=== PATIENT | female | born 1990 | race Hispanic/Latino ===

== ENCOUNTER 2018-02-25 08:11 | Emergency (ER) | payer BC, SELFPAY ==
[2018-02-25 09:07] LABS: Absolute Lymphocytes (CBC) 2.3 K/uL (0.7-4.9); Absolute Monocytes 0.6 K/uL (0.1-1.3); Basophils % 0.4 % (0-1.3); Eosinophils % 1.2 % (0-4.4); Hematocrit 39.1 % (36.0-45.0); Lymphocytes % 28.7 % (15.3-44.8); MCH 28.9 pg (27.0-35.0); MCV 86.7 fL (80-100); MPV 7.6 fL (7.6-11.3); RBC Red Blood Cell Count 4.51 M/uL (3.86-4.86)
[2018-02-25] MEDS ORDERED: MAGNE/ALUM HYDROXD 30 ML UCUP ONE (09:18)
[2018-02-25] MEDS ORDERED: LIDOCAINE VISCOUS 2% SOLN 15 ML UDC ONE (09:18)
[2018-02-25 09:34] LABS: Bicarbonate 29 mEq/L (21-31); Glucose Level 107 mg/dL (65-120); Lipase 22 U/L (22-51); Potassium 3.4 mEq/L (3.6-5.0); Sodium Level 137 mEq/L (135-145)
[2018-02-25 09:40] LABS: ALT/SGPT 28 IU/L (10-60); AST/SGOT 23 IU/L (10-42); Albumin 4.4 g/dL (3.2-5.5); Alkaline Phosphatase 67 IU/L (42-121); BUN Blood Urea Nitrogen 8 mg/dL (6-20); Bilirubin Direct 0.1 mg/dL (0-0.2); Bilirubin Total 0.4 mg/dL (0.3-1.2); Glomerular Filtration Rate > 90 mL/min (=/>90); Protein, Total 7.7 g/dL (6.0-8.3)
--- NOTE | 2018-02-25 10:47 | RAD REPORT ---
EXAM DESCRIPTION: Ceferino Solomon (2 Views)02/25/2018 9:25 am CLINICAL HISTORY: Chest pain COMPARISON: none FINDINGS: The lungs appear clear of acute infiltrate. The heart is normal size. Nodular opacities overlying the lung bases likely represent nipple shadows IMPRESSION: No acute abnormalities displayed
[2018-02-25 11:02] LABS: Urine Blood NEGATIVE (NEG); Urine Glucose NEGATIVE (NEG); Urine Protein NEGATIVE (NEG)
--- NOTE | 2018-02-25 11:26 | RAD REPORT ---
EXAM DESCRIPTION: US - Abdomen Exam Limited - 02/25/2018 9:51 am CLINICAL HISTORY: Abdominal pain. COMPARISON: None. FINDINGS: A focal area of gallbladder wall thickening measures 4 millimeters. The remainder the gall bladder wall thickness is normal. A gallstone is not seen. The biliary tree is normal caliber. IMPRESSION: Focal area of gallbladder wall thickening may represent adenomyomatosis. Early cholecyst itis is considered a less likely. If the patient's symptoms do not resolve over several days then a f ollow-up gallbladder ultrasound could be obtained for re-evaluation
--- NOTE | 2018-02-25 11:35 | EDPHYS ---
Physician Documentation [facility] Name: Melinda Gallardo Age: 27 yrs Sex: Female : 1990 Arrival Date: 02/25/2018 Time: 08:14 Bed 20 Private MD: ED Physician Jordi Raza HPI: 02/25 09:32 This 27 yrs old Female presents to ER via Ambulatory with complaints of Chest rn Pain. 09:32 The patient or guardian reports chest pain that is located primarily in the substernal rn area. The pain radiates to Associated signs and symptoms: Pertinent positives: None. Pertinent negatives: abdominal pain, cough, diaphoresis, dizziness, headache, lower extremity pain, lower extremity swelling, lightheadedness, nausea, near syncope, palpitations, recent travel, shortness of breath, syncope, vomiting. The chest pain is described as aching, burning. Duration: The patient or guardian reports multiple episodes, that are intermittent. Modifying factors: The symptoms are alleviated by nothing. the symptoms are aggravated by nothing. Severity of pain: At its worst the pain was mild in the emergency department the pain is unchanged. The patient has not experienced similar symptoms in the past. The patient has not recently seen a physician. 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 - Social history:: Smoking status: Patient/guardian denies using tobacco. - Family history:: not pertinent. - Hospitalizations: : No recent hospitalization is reported. ROS: 09:32 Constitutional: Negative for fever, chills, and weight loss, Eyes: Negative for injury, rn pain, redness, and discharge, Neck: Negative for injury, pain, and swelling, Cardiovascular: Negative for palpitations, and edema Respiratory: Negative for shortness of breath, cough, wheezing, and pleuritic chest pain, Abdomen/GI: Negative for abdominal pain, nausea, vomiting, diarrhea, and constipation, MS/Extremity: Negative for injury and deformity, Skin: Negative for injury, rash, and discoloration, Neuro: Negative for headache, weakness, numbness, tingling, and seizure. Exam: 09:32 Constitutional: This is a well developed, well nourished patient who is awake, alert, rn and in no acute distress. Head/Face: Normocephalic, atraumatic. Eyes: Pupils equal round and reactive to light, extra-ocular motions intact. Lids and lashes normal. Conjunctiva and sclera are non-icteric and not injected. Cornea within normal limits. Periorbital areas with no swelling, redness, or edema. Neck: Trachea midline, no thyromegaly or masses palpated, and no cervical lymphadenopathy. Supple, full range of motion without nuchal rigidity, or vertebral point tenderness. No Meningismus. Cardiovascular: Regular rate and rhythm with a normal S1 and S2. No gallops, murmurs, or rubs. Normal PMI, no JVD. No pulse deficits. Respiratory: Lungs have equal breath sounds bilaterally, clear to auscultation and percussion. No rales, rhonchi or wheezes noted. No increased work of breathing, no retractions or nasal flaring. Abdomen/GI: Soft, non-tender, with normal bowel sounds. No distension or tympany. No guarding or rebound. No evidence of tenderness throughout. Skin: Warm, dry with normal turgor. Normal color with no rashes, no lesions, and no evidence of cellulitis. MS/ Extremity: Pulses equal, no cyanosis. Neurovascular intact. Full, normal range of motion. Equal circumference. Neuro: Awake and alert, GCS 15, oriented to person, place, time, and situation. Cranial nerves II-XII grossly intact. Motor strength 5/5 in all extremities. Sensory grossly intact. Cerebellar exam normal. Normal gait. 09:36 ECG was reviewed by the Attending Physician. rn Vital Signs: 08:26 BP 131 / 84; Pulse 76; Resp 12; Temp 97.0(TE); Pulse Ox 99% on R/A; Weight 52.16 kg lk1 (R); Height 4 ft. 9 in. (144.78 cm) (R); Pain 3/10; 10:08 BP 130 / 85; Pulse 75; Resp 18; Pulse Ox 100% on R/A; hj 11:43 BP 128 / 84; Pulse 74; Resp 18; Pulse Ox 100% on R/A; hj 08:26 Body Mass Index 24.89 (52.16 kg, 144.78 cm) lk1 MDM: 08:29 Patient medically screened. rn 09:35 ED course: Pt reports sensation feels like heartburn, goes up to her throat. No rn fever/cough/sob.. 11:28 Differential diagnosis: acute myocardial infarction, acute pericarditis, anxiety, rn coronary artery disease esophagitis, gastritis, gastroesophageal reflux disease (GERD), pancreatitis, peptic ulcer disease, pleurisy, pneumonia. Data reviewed: vital signs, nurses notes, lab test result(s), EKG, radiologic studies, plain films, ultrasound, and as a result, I will discharge patient. Counseling: I had a detailed discussion with the patient and/or guardian regarding: the historical points, exam findings, and any diagnostic results supporting the discharge/admit diagnosis, lab results, radiology results, the need for outpatient follow up, to return to the emergency department if symptoms worsen or persist or if there are any questions or concerns that arise at home. Special discussion: Based on the patient's history, exam, and Dx evaluation, there is no indication for emergent intervention or inpatient Tx. It is understood by the patient/guardian that if the Sx's persist or worsen they need to return immediately for re-evaluation. Based on the patient's Hx, exam, and Dx evaluation, there is no indication for emergent surgery or inpatient Tx. It is understood by the patient/guardian that if the Sx's persist or worsen they need to return immediately for re-evaluation. I discussed with the patient/guardian in detail that at this point there is no indication for admission to the hospital. It is understood, however, that if the symptoms persist or worsen the patient needs to return immediately for re-evaluation. ED course: Normal u/s of gallbladder except focal area of thickening of wall, no stones, normal WBC, normal LFTs/Lipase, will dc home with return precautions, no ischemia on ecg. . 02/25 08:48 Order name: CBC with Diff rn 02/25 08:48 Order name: Basic Metabolic Panel rn 02/25 08:48 Order name: Troponin (emerg Dept Use Only) rn 02/25 08:48 Order name: Lipase; Complete Time: 10:10 rn 02/25 08:48 Order name: LFT's; Complete Time: 10:10 rn 02/25 08:49 Order name: CBC with Automated Diff; Complete Time: 10:10 EDMS 02/25 08:48 Order name: EKG; Complete Time: 08:49 rn 02/25 08:48 Order name: XRAY Chest Pa And Lat (2 Views); Complete Time: 11:15 rn 02/25 08:48 Order name: US Abdomen Limited; Complete Time: 11:27 rn 02/25 08:49 Order name: Basic Metabolic Panel; Complete Time: 10:10 EDMS 02/25 08:49 Order name: Troponin (Emerg Dept Use Only); Complete Time: 10:10 EDMS 02/25 08:59 Order name: Urine Dipstick--Ancillary (enter results); Complete Time: 11:15 bd 02/25 08:59 Order name: Urine --Ancillary (enter results); Complete Time: 11:15 bd 02/25 08:48 Order name: IV Start; Complete Time: 08:49 rn 02/25 08:48 Order name: EKG - Nurse/Tech; Complete Time: 08:49 rn EC:36 Rate is 92 beats/min. Rhythm is regular. QRS [place] is Normal. CA interval is normal. QRS rn interval is normal. QT interval is normal. No Q waves. T waves are Normal. No ST changes noted. Clinical impression: NSR w/ Non-specific ST/T Changes. Interpreted by me. Administered Medications: 08:48 Drug: GI Cocktail without - (Maalox Suspension 30 ml, Lidocaine Liquid 2 % 15 hj ml) Route: PO; 09:06 Follow up: Response: No adverse reaction hj Disposition: 02/25/18 11:34 Discharged to Home. Impression: Chest pain, unspecified, Gastro-esophageal reflux disease. - Condition is Stable. - Discharge Instructions: Nonspecific Chest Pain, Gastroesophageal Reflux Disease, Adult. - Medication Reconciliation Form, Thank You Letter, Antibiotic Education, Prescription Opioid Use form. - Follow up: Private Physician; When: As needed; Reason: Recheck today's complaints, Re-evaluation by your physician. - Problem is new. - Symptoms have improved. Signatures: Dispatcher [employer] EDMS Jordi Raza MD MD rn Joaquin, Henry, RN RN hj Kluge, Leah, RN RN lk1 Corrections: (The following items were deleted from the chart) 09:35 09:32 Constitutional: Negative for fever, chills, and weight loss, Eyes: Negative for rn injury, pain, redness, and discharge, Neck: Negative for injury, pain, and swelling, Cardiovascular: Negative for palpitations, and edema Respiratory: Negative for shortness of breath, cough, wheezing, and pleuritic chest pain, Abdomen/GI: Negative for abdominal pain, nausea, vomiting, diarrhea, and constipation, MS/Extremity: Negative for injury and deformity, Skin: Negative for injury, rash, and discoloration, Neuro: Negative for headache, weakness, numbness, tingling, and seizure, rn
--- NOTE | 2018-02-25 11:35 | ER ---
Nurse's Notes [facility] Emergency Department Name: Melinda Gallardo Age: 27 yrs Sex: Female : 1990 Arrival Date: 02/25/2018 Time: 08:14 Bed 20 Private MD: Diagnosis: Chest pain, unspecified;Gastro-esophageal reflux disease Presentation: 02/25 08:24 Presenting complaint: Patient states: "I have been having pains in the middle (chest) lk1 for a few days and it won't go away. I sometimes feel like my jaw is tightening up and my throat is getting narrow.". Transition of care: patient was not received from another setting of care. Onset of symptoms was February 23, 2018. Care prior to arrival: None. 08:24 Method Of Arrival: Ambulatory lk1 08:24 Acuity: HERMAN 3 lk1 Triage Assessment: 08:25 General: Appears in no apparent distress. Behavior is calm, cooperative, appropriate lk1 for age. Pain: Complains of pain in mid-sternal area Pain currently is 3 out of 10 on a pain scale. Cardiovascular: Capillary refill is brisk Patient's skin is warm and dry. Respiratory: Airway is patent Respiratory effort is even, unlabored, Respiratory pattern is regular, symmetrical. 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 - Social history:: Smoking status: Patient/guardian denies using tobacco. - Family history:: not pertinent. - Hospitalizations: : No recent hospitalization is reported. Screenin:32 Abuse screen: Denies threats or abuse. Denies injuries from another. Nutritional hj screening: No deficits noted. Tuberculosis screening: No symptoms or risk factors identified. Fall Risk None identified. Assessment: 08:31 General: Appears in no apparent distress. uncomfortable, Behavior is calm, cooperative, hj appropriate for age. Pain: Complains of pain in chest and mid-sternal area Pain radiates to jaw Pain began. Neuro: Level of Consciousness is awake, alert, obeys commands, Oriented to person, place, time, situation. Cardiovascular: Capillary refill < 3 seconds Patient's skin is warm and dry. Respiratory: Airway is patent Respiratory effort is even, unlabored, Respiratory pattern is regular, symmetrical, Breath sounds are clear. GI: No signs and/or symptoms were reported involving the gastrointestinal system. : No signs and/or symptoms were reported regarding the genitourinary system. EENT: No signs and/or symptoms were reported regarding the EENT system. Derm: No signs and/or symptoms reported regarding the dermatologic system. Musculoskeletal: No signs and/or symptoms reported regarding the musculoskeletal system. 09:16 Reassessment: back from US. Reassessment: Patient and/or family updated on plan of care hj and expected duration. Pain level reassessed. Patient is alert, oriented x 3, equal unlabored respirations, skin warm/dry/pink. 10:08 Reassessment: Patient and/or family updated on plan of care and expected duration. Pain hj level reassessed. Patient is alert, oriented x 3, equal unlabored respirations, skin warm/dry/pink. awaiting results;. Vital Signs: 08:26 BP 131 / 84; Pulse 76; Resp 12; Temp 97.0(TE); Pulse Ox 99% on R/A; Weight 52.16 kg lk1 (R); Height 4 ft. 9 in. (144.78 cm) (R); Pain 3/10; 10:08 BP 130 / 85; Pulse 75; Resp 18; Pulse Ox 100% on R/A; hj 11:43 BP 128 / 84; Pulse 74; Resp 18; Pulse Ox 100% on R/A; hj 08:26 Body Mass Index 24.89 (52.16 kg, 144.78 cm) lk ED Course: 08:14 Patient arrived in ED. mr 08:25 Triage completed. lk1 08:27 Arm band placed on right wrist. lk1 08:29 Jordi Raza MD is Attending Physician. rn 08:30 Masoud Ruiz RN is Primary Nurse. hj 08:32 Patient has correct armband on for positive identification. Placed in gown. Bed in low hj position. Call light in reach. Side rails up X 1. child monitor on. Pulse ox on. NIBP on. 08:32 Patient maintains SpO2 saturation greater than 95% on room air. hj 08:38 Initial lab(s) drawn, by me, EKG done, by technical editor. Inserted saline lock: 22 gauge in hj right antecubital area, using aseptic technique. Blood collected. 08:46 EKG done, by technical editor. reviewed by Jordi Raza MD. tc 09:05 Urine collected: clean catch specimen, clear. 5 09:05 Urine --Ancillary (enter results) Sent. mh5 09:05 Urine Dipstick--Ancillary (enter results) Sent. 5 09:07 Patient moved to radiology via wheelchair. sw 09:24 XRAY Chest Pa And Lat (2 Views) In Process Unspecified. EDMS 09:43 Patient taken to ultrasound. via wheelchair. aa4 09:49 US Abdomen Limited In Process Unspecified. EDMS 09:55 Ultrasound completed. Patient tolerated well. aa4 09:55 Patient moved back from ultrasound. aa 11:42 No provider procedures requiring assistance completed. IV discontinued, intact, hj bleeding controlled, No redness/swelling at site. Pressure dressing applied. Administered Medications: 08:48 Drug: GI Cocktail without - (Maalox Suspension 30 ml, Lidocaine Liquid 2 % 15 hj ml) Route: PO; 09:06 Follow up: Response: No adverse reaction Outcome: 11:34 Discharge ordered by . rn 11:42 Discharged to home ambulatory. 11:42 Condition: stable 11:42 Discharge instructions given to patient, Instructed on discharge instructions, follow up and referral plans. Demonstrated understanding of instructions, follow-up care. 11:47 Patient left the ED. Signatures: Dispatcher [employer] [facility] Carmen Brito mr [facility] Jordi Raza MD MD rn Callis, Tiffany, spooler rubber strand EKG Mariola Trejo Masoud Ruiz RN RN hj Kluge, Leah, RN RN Carmen Velez [facility]
[2018-02-25 11:58] VITALS: TEMP 97
[2018-02-25 11:59] VITALS: O2SAT 100
[2018-02-25 12:00] VITALS: BP 128/84
--- NOTE | 2018-02-25 16:27 | EKG ---
Test Date: 2018-02-25 Test Time: 08:36:05 Respiratory Care Technician: ARISTEO MEASUREMENT RESULTS: Intervals: Rate: 92 [place]: 144 QRSD: 84 QT: 370 QTc: 457 [place]: P: 61 [place]: 144 QRS: 33 T: 16 INTERPRETIVE STATEMENTS: Normal sinus rhythm Nonspecific T wave abnormality Abnormal ECG No previous ECG available for comparison Electronically Signed On 02-25-18 16:24:55 CDT by Star Alicia
== END 2018-02-25 11:47 | disposition home or self-care (01) ==
LOC: ER 08:11
DX: K21.9 Gastro-esophageal reflux disease without esophagitis
CPT/HCPCS: 36415; 71046; 76705; 80048; 80076; 81003; 81025; 83690; 84484; 85025; 93005; 99285

== ENCOUNTER 2019-08-31 10:41 | Inpatient (IN) | payer OTHER ==
[2019-08-30 16:23] LABS: Urine Appearance CLOUDY; Urine Bilirubin NEGATIVE (NEG); Urine Blood NEGATIVE (NEG); Urine Color YELLOW; Urine Glucose NEGATIVE (NEG); Urine Protein NEGATIVE (NEG); Urine Specific Gravity 1.015 (1.005-1.030); Urine Urobilinogen 0.2 mg/dL (0.2-1.0)
[2019-08-30 16:25] LABS: Urine Microscopic Reflex ORDER UMIC
[2019-08-30 16:26] LABS: Absolute Lymphocytes (CBC) 1.6 K/uL (0.7-4.9); Basophils % 0.4 % (0-1.3); Hematocrit 34.4 % (36.0-45.0); MPV 7.9 fL (7.6-11.3); RBC Red Blood Cell Count 3.84 M/uL (3.86-4.86)
[2019-08-30 16:31] LABS: Urine Amorphous Sediment TRACE /HPF (NONE SEEN); Urine Bacteria 20-50 /HPF (<20); Urine Culture Reflex Order REFLEXED; Urine RBC NONE SEEN /HPF (NONE SEEN)
[2019-08-30 21:16] LABS: RPR (Rapid Plasma Reagin) NON-REACT (NON-REACT)
[~2019-08-31 10:41] MED LIST: CEFAZOLIN/SWI 2gm 2 GM/20 ML SYR IVP SCH
[2019-08-31] MEDS ORDERED: Ringers Lactate 1,000 ML IV PRN (11:08)
[2019-08-31] MEDS ORDERED: NA CIT/CITRIC AC 30 ML ORAL UDC PO ONE (11:11)
[2019-08-31 11:23] VITALS: BMI 31.8
[2019-08-31] MEDS ORDERED: FAMOTIDINE 20 MG/2 ML VIAL IV ONE (11:27)
[2019-08-31] MEDS ORDERED: METOCLOPRAMIDE 10 MG/2mL INJ IV SCH (12:00)
[2019-08-31] MEDS ORDERED: MORPHINE SULFATE/PF 1 MG/ML (10 ML AMP) ONE (12:11)
[2019-08-31] MEDS ORDERED: BUPIVACAINE 0.75% (PF) 2 ML SP ONE (12:11)
[2019-08-31] MEDS ORDERED: OXYTOCIN 10 UNIT/ML ML IV ONE (12:11)
[2019-08-31] MEDS ORDERED: LIDOCAINE 1% MPF 5 ML VIAL ONE (12:12)
[2019-08-31] MEDS ORDERED: MIDAZOLAM HCL 2 MG/2 ML INJ ONE (13:17)
[2019-08-31] MEDS ORDERED: BISACODYL 10 MG RECTAL SUPP RECT PRN (13:54)
[2019-08-31] MEDS ORDERED: Oxycodone HCl/Acetaminophen 1 TAB TAB PO PRN (13:54)
[2019-08-31] MEDS ORDERED: METHYLERGONOVINE 0.2 MG TAB PO PRN (13:54)
[2019-08-31] MEDS ORDERED: ONDANSETRON 4 MG (ODT) TAB PO PRN ×2 (13:54→13:56)
[2019-08-31] MEDS ORDERED: ACETAMINOPHEN 500 MG TAB PO PRN (13:54)
[2019-08-31] MEDS ORDERED: KETOROLAC 30 MG/ML INJ IV PRN (13:56)
[2019-08-31] MEDS ORDERED: ONDANSETRON 4 MG/2 ML VIAL IV PRN (16:47)
[2019-08-31] MEDS ORDERED: PROMETHAZINE 25 MG/ML VIAL IV PRN (16:47)
[2019-08-31] MEDS ORDERED: OXYTOCIN/LR 20 UNIT/1,000 ML BAG IV ONE (17:10)
[2019-08-31] MEDS ORDERED: Ringers Lactate 4,000 ML IV ONE (17:13)
[2019-08-31] MEDS ORDERED: Ringers Lactate 1,000 ML IV ONE (20:17)
--- NOTE | 2019-08-31 21:16 | P.OP ---
Estimator Binding: Nolberto Crowell Preoperative diagnosis: 38 weeks gestation, uteroplacental insufficiency, prior c/s Postoperative diagnosis: same Primary procedure: Repeat low transverse section Secondary procedure: none Anesthesia: Spinal Estimated blood loss: 900cc Specimen: cord blood, placenta Operative Technique: FINDINGS: The uterus was normal. Both fallopian tubes and ovaries were found to be normal. The was in a ROT position. The was female and weighed 7lb 14oz. The 's Apgars were 9 at 1 min. and 9 at 5 min. Clear amniotic fluid. Normal appearing placenta. Procedure described: The patient was taken to the operating room within IV running with antibiotics infusing where she was placed in a dorsal supine position with a slight leftward tilt. She was prepped and draped in the normal sterile fashion from the xiphoid sternum to the midthighs including the vulva and vagina. A Queen catheter was placed in the bladder and connected to dependent drainage. PAS stockings were in place and activated. A timeout was done per our usual protocol. A Pfannenstiel incision was made about 1 cm above the symphysis pubis and carried out through the subcutaneous tissue with scalpel and electrocautery. The fascia was nicked in the midline and the fascial incision was extended laterally with Sorenson scissors. The superior aspect of the fascial incision was tented up and bluntly and sharply dissected off the rectus muscles below. In a similar fashion, the inferior aspect of the fascial incision was tented up and bluntly and sharply dissected off the rectus muscles below. The rectus muscles were in the midline, the peritoneum was identified and entered sharply between two hemostats using Metzenbaum scissors. The peritoneal incision was extended superiorly and inferiorly with good visualization of intraperitoneal organs and the bladder. The bladder was noted to be distended and not draining into the queen bag. The bladder blade was placed, the bladder flap was developed, the bladder blade was replaced and a transverse curvilinear incision was made in the lower uterine segment. The incision was extended laterally with blunt digital dissection. The surgeon's hand was placed into the incision, the 's head was delivered using a Kiwi vacuum due to anteflexed head, followed by the torso. The mouth and nose were suctioned with and suction bulb. The umbilical cord was clamped and cut and the was handed off to the waiting care attendants. Cord blood was obtained. The uterus was massaged and the placenta was expressed. The uterus was exteriorized and cleared of all clots and debris. The bladder blade was replaced, ring clamp was used to dilate the cervix. The edges of the uterine incision were reapproximated with an 0 vicry in a running un-locking fashion and closed in 2 layers. Large amount of bleeding occurred in the left angle of the incision and was repaired with vicryl suture. The incision was inspected and found to be hemostatic. The bladder peritoneum was then closed with 3-0 Vicryl suture in a running fashion. The pelvic peritoneum was not irrigated, but was cleared of all clots and debris. The uterus was replaced into the peritoneal cavity. The medial edges of the rectus muscles were plicated in the midline using 0 Vicryl suture in an running fashion. The rectus muscles were inspected and found to be hemostatic. The fascia was then closed with 1-Vicryl suture in a running fashion. The subcutaneous tissues were copiously lavaged with warm normal saline. Hemostasis was noted and the subcutaneous tissue was approximated with 2.0 plain gut in an interrupted fashion. The skin was closed with a subcuticular stitch of 3-0 vicryl suture on a Kevin needle. The incision was cleansed and an occlusive dressing was placed. Attention was then turned to the vagina. The prior queen catheter was removed and a new one was placed an found to be draining very well and draining clear urine. Sponge, needle, instrument counts were correct x 2. There were no complications and patient tolerated the procedure well. She was taken to her room in good condition and allowed to coker with . Complications: None Drain(s): Urinary catheter Transferred to: Recovery Room Condition: Good
[2019-09-01] MEDS ORDERED: Ringers Lactate 1,000 ML IV SCH (01:00)
[2019-09-01 04:56] LABS: Absolute Lymphocytes (CBC) 1.6 K/uL (0.7-4.9); Basophils % 0.2 % (0-1.3); Lymphocytes % 14.8 % (15.3-44.8); MPV 7.7 fL (7.6-11.3); RBC Red Blood Cell Count 3.25 M/uL (3.86-4.86)
[2019-09-01] MEDS: Oxycodone HCl/Acetaminophen 1 TAB TAB PO PRN ×2 (10:37→19:55)
[2019-09-01] MEDS ORDERED: FAMOTIDINE 20 MG/2 ML VIAL IV ONE (11:12)
[2019-09-01] MEDS: IBUPROFEN 400 MG TAB PO PRN (15:14)
[2019-09-02] MEDS: IBUPROFEN 400 MG TAB PO PRN (03:23)
[2019-09-02 08:51] VITALS: BP 121/64; TEMP 97.4
[2019-09-02] MEDS ORDERED: Tdap (Diph,Pertuss(Acell),Tet Vac) 0.5 ML SYR IMVAC ONE (09:17)
--- NOTE | 2019-09-02 21:57 | P.PN ---
Date of Service: 09/01/19 The patient is postop day 1 from a repeat section complicated by uteroplacental insufficiency and GDMA1. She is doing well. She is tolerating diet. Her pain is well controlled. She is afebrile. She has no complaints today she is bonding well with the baby and is breast-feeding. Vital sign stable Selected Entries 09/01/19 09/01/19 05:30 08:00 Temperature 97.8 F 96.8 F Pulse Rate 65 64 Respiratory 18 18 Rate Blood Pressure 113/70 110/55 L Pain Level 0 Laboratory Tests 08/30/19 08/31/19 09/01/19 16:03 17:50 04:26 WBC 7.3 10.5 D Hgb 11.6 L 10.1 L Hct 34.4 L 32.5 L 30.0 L Plt Count 203 170 Glucose 09/01/19 04:26 WBC Hgb Hct Plt Count Glucose 75 General: Resting in bed no distress Head and neck: Normocephalic atraumatic, supple Respiratory: Symmetric nonlabored breathing Abdomen: Soft, mildly distended, mildly tender. Incision clean dry and intact Bilateral lower extremities: No clubbing cyanosis or edema. Assessment and plan patient is postop day 1 after repeat section she is doing well. Pain is well controlled. Discontinue IV discontinue West catheter. Encourage patient to ambulate. Possible discharge home tomorrow.
--- NOTE | 2019-09-02 21:58 | P.DS ---
Admission Date: 08/31/19 Discharge Date: 09/02/19 Disposition: ROUTINE DISCHARGE Discharge Condition: GOOD Brief History of Present Illness: Patient was admitted for repeat section Hospital Course: Patient has done well following delivery. Her pain has been well managed. She is tolerating a regular diet. She is ambulating well. She is voiding without difficulty. She is breast feeding her baby and bonding well. Vital Signs/Physical Exam: Temp Pulse Resp BP Pulse Ox 97.4 F 70 18 121/64 09/02/19 08:00 09/02/19 08:00 09/02/19 08:00 09/02/19 08:00 General: Alert, In no apparent distress, Oriented x3 HEENT: Atraumatic Neck: Supple Respiratory: Normal air movement Cardiovascular: No edema, Normal pulses Gastrointestinal: Normal bowel sounds, No rebound, No guarding, Other (incision is clean, dry and intact) Musculoskeletal: No clubbing, No swelling Integumentary: No rashes, No breakdown Laboratory Data at Discharge: WBC 10.5 K/uL (4.3-10.9) D 09/01/19 04:26 Hgb 10.1 g/dL (12.0-15.0) L 09/01/19 04:26 Hct 30.0 % (36.0-45.0) L 09/01/19 04:26 Plt Count 170 K/uL (152-406) 09/01/19 04:26 Glucose 75 mg/dL (74-106) 09/01/19 04:26 Home Medications: Pnv Cmb#95/Ferrous Fumarate/FA [ Tablet] 1 tab PO DAILY 10/06/13 Codeine/APAP [Tylenol W/Codeine #3 tab] 1 tab PO Q6HP PRN #24 tab 09/02/19 New Medications: Codeine/APAP [Tylenol W/Codeine #3 tab] 1 tab PO Q6HP PRN #24 tab PRN Reason: Pain Diet: Regular Activity: No lifting more than 10 lbs Followup: Georgi Garcia DO [ACTIVE - CAN ADMIT] - 1 Week (Follow up with Dr. Garcia in 1 week. )
[2019-09-03 02:27] LABS: HBsAG Nonreactive (Nonreactive)
== END 2019-09-02 10:35 | disposition home or self-care (01) | DRG 788 ==
LOC: 2ND-WC 10:41
PROVIDERS: ADMIT Student in an Organized Health Care Education/Training Program; ATTEND Student in an Organized Health Care Education/Training Program
PROC: 10D00Z1 Extraction of Products of Conception, Low, Open Approach (ICD-10-PCS; principal; 2019-08-31 12:30)
DX: O34.03 Maternal care for unspecified congenital malformation of uterus, third trimester (principal); Q51.818 Other congenital malformations of uterus; Z3A.38 38 weeks gestation of pregnancy; Z37.0 Single live birth; O36.5130 Maternal care for known or suspected placental insufficiency, third trimester, not applicable or unspecified; O24.420 Gestational diabetes mellitus in childbirth, diet controlled; Z23 Encounter for immunization
CPT/HCPCS: 36415; 81003; 81015; 82947; 85014; 85025; 86592; 86850; 86900; 86901; 87086; 87088; 87340; 88307; 90471; 90715; J0690; J2250; J2405; J2590; J2765

== ENCOUNTER 2019-09-11 18:02 | Emergency (ER) | payer OTHER ==
[2019-09-11 19:52] LABS: Absolute Lymphocytes (CBC) 0.7 K/uL (0.7-4.9); Basophils % 0.1 % (0-1.3); Hematocrit 38.7 % (36.0-45.0); Lymphocytes % 5.1 % (15.3-44.8); MPV 6.8 fL (7.6-11.3); RBC Red Blood Cell Count 4.26 M/uL (3.86-4.86)
[2019-09-11 20:03] LABS: ALT/SGPT 20 U/L (12-78); AST/SGOT 13 U/L (15-37); Albumin 3.3 g/dL (3.4-5.0); Alkaline Phosphatase 114 U/L (45-117); BUN Blood Urea Nitrogen 9 mg/dL (7-18); Bicarbonate 24 mmol/L (21-32); Bilirubin Direct 0.1 mg/dL (0-0.2); Bilirubin Total 0.4 mg/dL (0.2-1.0); Glucose Level 95 mg/dL (74-106); Lipase 86 U/L (73-393); Potassium 3.6 mmol/L (3.5-5.1); Protein, Total 7.4 g/dL (6.4-8.2); Sodium Level 139 mmol/L (136-145)
--- NOTE | 2019-09-11 20:47 | RAD REPORT ---
EXAM DESCRIPTION: CT - Abdomen Pelvis Wo Contrast - 09/11/2019 8:26 pm CLINICAL HISTORY: ABD PAIN Patient is 12 days COMPARISON: CT ABD PELVIS W CONTRAST dated 10/26/2014 None. TECHNIQUE: Axial [address] imaging of the abdomen and pelvis was performed without IV contrast. No IV contrast was given because of allergy, abnormal renal function, patient refusal or physician re quest. No oral contrast administered. All CT scans are performed using dose optimization technique as appropriate and may include automated exposure control or mA/KV adjustment according to patient size. FINDINGS: No suspicious findings in the lung bases. The liver, spleen and pancreas show no suspicious findings on non-contrast imaging. Gallbladder and b iliary tree are also without suspicious finding. No hydronephrosis or suspicious renal mass. No significant adrenal finding. Isodense renal masses an d pyelonephritis cannot be excluded in the absence of IV contrast. The urinary bladder is without sig nificant finding. No dilated bowel loops or bowel wall thickening. Moderate stool volume fills the colon. No free air, free fluid or inflammatory stranding. No hernia, mass or bulky lymphadenopathy. Uterus is enlarged, not unexpected for status. No abnormal air within the endometrial cavi ty. Postsurgical changes are noted to the lower abdominal wall. No cellulitis, hematoma or is other s uspicious findings at the surgical site. No suspicious bony findings. IMPRESSION: Enlarged uterus. No air in the endometrial cavity. No suspicious uterine find ing 412 date status. Postsurgical changes to the lower abdominal wall. No cellulitis, abscess or suspicious finding noted. No hydronephrosis or acute finding. Isodense masses and pyelonephritis are not excluded. Full assessment is limited is the absence of IV contrast.
[2019-09-11 20:51] LABS: Blood Morphology Comment NOT SEEN (NOT SEEN); Platelet Estimate ADEQ
--- NOTE | 2019-09-11 20:59 | ER ---
Nurse's Notes [facility] Name: Melinda Gallardo Age: 29 yrs Sex: Female : 1990 Arrival Date: 09/11/2019 Time: 18:05 Bed 8 Private MD: Diagnosis: Unspecified abdominal pain;Otalgia and effusion of ear-right ear;Allergy, unspecified Presentation: 09/11 18:11 Presenting complaint: Body aches, fever, chills, malaise, and abdominal pain x 3-4 hb days. Pt is 12 days . Transition of care: patient was not received from another setting of care. Onset of symptoms was September 08, 2019. Risk Assessment: Do you want to hurt yourself or someone else? Patient reports no desire to harm self or others. Care prior to arrival: None. 18:11 Method Of Arrival: Ambulatory hb 18:11 Acuity: HERMAN 3 hb 18:42 Initial Sepsis Screen: Does the patient meet any 2 criteria? No. Patient's initial mg2 sepsis screen is negative. Does the patient have a suspected source of infection? No. Patient's initial sepsis screen is negative. Historical: - Allergies: 18:13 No Known Allergies; hb - Home Meds: 18:13 None [Active]; hb - PMHx: 18:13 None; hb - PSHx: 18:13 ; hb - Immunization history:: Adult Immunizations up to date. - Social history:: Smoking status: Patient/guardian denies using tobacco. - Ebola Screening: : No symptoms or risks identified at this time. Screenin:42 Abuse screen: Denies threats or abuse. Denies injuries from another. Nutritional mg2 screening: No deficits noted. Tuberculosis screening: No symptoms or risk factors identified. Fall Risk None identified. Assessment: 18:41 General: Appears in no apparent distress. comfortable, Behavior is calm, cooperative. mg2 Pain: Complains of pain in abdomen and head Pain does not radiate. Pain currently is 3 out of 10 on a pain scale. Quality of pain is described as aching, Pain began gradually, 2-3 days ago. Is intermittent. Neuro: Level of Consciousness is awake, alert, obeys commands, Oriented to person, place, time, situation. Cardiovascular: Capillary refill < 3 seconds Patient's skin is warm and dry. Respiratory: Airway is patent Respiratory effort is even, unlabored, Respiratory pattern is regular, symmetrical. Respiratory: Reports nasal drainage. GI: Reports lower abdominal pain. : No signs and/or symptoms were reported regarding the genitourinary system. EENT: No signs and/or symptoms were reported regarding the EENT system. Derm: Skin is intact, is healthy with good turgor, Skin is pink, warm \T\ dry. normal. Musculoskeletal: Circulation, motion, and sensation intact. Capillary refill < 3 seconds. 19:27 General: Appears comfortable, Behavior is calm, cooperative. Neuro: Level of ea Consciousness is awake, alert, obeys commands, Oriented to person, place, time, situation. Cardiovascular: Patient's skin is warm and dry. Respiratory: Airway is patent Respiratory effort is even, unlabored, Respiratory pattern is regular, symmetrical. Derm: Skin is pink, warm \T\ dry. Musculoskeletal: Circulation, motion, and sensation intact. 20:41 Reassessment: Patient and/or family updated on plan of care and expected duration. Pain ea level reassessed. Patient is alert, oriented x 3, equal unlabored respirations, skin warm/dry/pink. Awaiting on CT results. 21:11 Reassessment: Patient and/or family updated on plan of care and expected duration. Pain ea level reassessed. Patient is alert, oriented x 3, equal unlabored respirations, skin warm/dry/pink. Discharge instruction given to patient, verbalized the understanding of instruction. Pt left ED ambulatory, tolerated well. Vital Signs: 18:12 BP 148 / 94; Pulse 97; Resp 16; Temp 99.7(TE); Pulse Ox 99% on R/A; Weight 62.14 kg; hb Height 4 ft. 9 in. (144.78 cm); Pain 7/10; 18:42 BP 122 / 74; Pulse 85; Resp 18; Pulse Ox 100% on R/A; mg2 19:27 BP 123 / 72; Pulse 86; Resp 18; Pulse Ox 99% on R/A; ea 20:42 BP 129 / 77; Pulse 71; Resp 18; Pulse Ox 100% on R/A; ea 18:12 Body Mass Index 29.65 (62.14 kg, 144.78 cm) hb ED Course: 18:05 Patient arrived in ED. mr 18:12 Triage completed. hb 18:12 Arm band placed on. hb 18:18 Chandler Izquierdo, MICHAEL is PHCP. pm1 18:18 Jonny Mazariegos MD is Attending Physician. pm1 18:21 Jono Garcia, DOMINGA is Primary Nurse. mg2 18:42 Patient has correct armband on for positive identification. mg2 18:42 No provider procedures requiring assistance completed. Patient did not have IV access mg2 during this emergency room visit. 18:44 Chest Pa And Lat (2 Views) XRAY In Process Unspecified. EDMS 19:42 Inserted saline lock: 20 gauge in left antecubital area, using aseptic technique. ea ,using aseptic technique. Inserted by [facility] Blood collected. 20:26 CT completed. Patient tolerated procedure well. Patient moved back from CT. vm2 20:26 Abdomen In Process Unspecified. EDMS Administered Medications: No medications were administered Outcome: 20:59 Discharge ordered by MD. pm1 21:12 Discharged to home ambulatory, with family. ea 21:12 Condition: stable 21:12 Discharge instructions given to patient, Instructed on discharge instructions, follow up and referral plans. Demonstrated understanding of instructions, follow-up care. 21:12 Patient left the ED. ea Signatures: Dispatcher [employer] [facility] Consuelo Brito mr AnngreggChandler, MICHAEL DYE AND CHEMICAL COORDINATOR pm1 Dianne Vela, RN RN Lucila Lopez vm2 Sammi Sylvester RN RN ea Gardose, Michele, DOMINGA RN mg2
--- NOTE | 2019-09-11 21:00 | EDPHYS ---
Physician Documentation [facility] Name: Melinda Gallardo Age: 29 yrs Sex: Female : 1990 Arrival Date: 09/11/2019 Time: 18:05 Bed 8 Private MD: ED Physician Jonny Mazariegos HPI: 09/11 19:25 This 29 yrs old Female presents to ER via Ambulatory with complaints of Flu pm1 Symptoms. 19:25 The patient or guardian reports cough, right ear pain, bilateral eye allergies and pm1 tearing. Associated signs and symptoms: Pertinent positives: Abdominal pain in the umbilical area. The patient has not experienced similar symptoms in the past. Patient with 2 weeks ago. Patient without any abnormal amount of vaginal bleeding but was worried that her abdominal pain was related to the . Abdominal pain is located on the umbilical area. 19:25 Onset: The symptoms/episode began/occurred 3 day(s) ago. Severity of symptoms: in the pm1 emergency department the symptoms are unchanged. Modifying factors: The symptoms are alleviated by nothing, the symptoms are aggravated by nothing. Reports flu-like symptoms, generalized body aches and bilateral knee pain. 19:25 Patient reports some breast tenderness to left upper breast. pm1 Historical: - Allergies: 18:13 No Known Allergies; hb - Home Meds: 18:13 None [Active]; hb - PMHx: 18:13 None; hb - PSHx: 18:13 ; hb - Immunization history:: Adult Immunizations up to date. - Social history:: Smoking status: Patient/guardian denies using tobacco. - Ebola Screening: : No symptoms or risks identified at this time. ROS: 19:25 Neck: Negative for injury, pain, and swelling, Cardiovascular: Negative for chest pain, pm1 palpitations, and edema. 19:25 Back: Negative for injury and pain, : Negative for injury, bleeding, discharge, and swelling, Skin: Negative for injury, rash, and discoloration, Neuro: Negative for headache, weakness, numbness, tingling, and seizure. 19:25 Constitutional: Positive for malaise, subjective fevers. 19:25 Eyes: Positive for swelling, tearing. 19:25 ENT: Positive for ear pain. 19:25 Respiratory: Positive for cough, with no reported sputum. 19:25 Abdomen/GI: Positive for abdominal pain, nausea, vomiting, and diarrhea, constipation. 19:25 MS/extremity: Positive for pain, of the right knee and left knee. Exam: 19:25 Constitutional: This is a well developed, well nourished patient who is awake, alert, pm1 and in no acute distress. Head/Face: Normocephalic, atraumatic. 19:25 Neck: Trachea midline, no thyromegaly or masses palpated, and no cervical lymphadenopathy. Supple, full range of motion without nuchal rigidity, or vertebral point tenderness. No Meningismus. Chest/axilla: Normal chest wall appearance and motion. Nontender with no deformity. No lesions are appreciated. Cardiovascular: Regular rate and rhythm with a normal S1 and S2. No gallops, murmurs, or rubs. Normal PMI, no JVD. No pulse deficits. Respiratory: Lungs have equal breath sounds bilaterally, clear to auscultation and percussion. No rales, rhonchi or wheezes noted. No increased work of breathing, no retractions or nasal flaring. Abdomen/GI: Soft, non-tender, with normal bowel sounds. No distension or tympany. No guarding or rebound. No evidence of tenderness throughout. Back: No spinal tenderness. No costovertebral tenderness. Full range of motion. Skin: Warm, dry with normal turgor. Normal color with no rashes, no lesions, and no evidence of cellulitis. MS/ Extremity: Pulses equal, no cyanosis. Neurovascular intact. Full, normal range of motion. 19:25 Eyes: Periorbital structures: appear normal, Extraocular movements: no acute changes, Conjunctiva: normal, Corneas: no acute changes, Lids and lashes: bilateral eyelid swelling, right greater than the left. 19:25 ENT: TM's: bulging, on the right, erythema, is not appreciated, bilaterally, rupture, is not appreciated, Nose: no acute changes, Mouth: is normal. 19:25 Chest/axilla: Breasts: abscess, not appreciated, cellulitis, is not appreciated, nipple discharge, is not appreciated, rash, is not appreciated, tenderness, is not appreciated, Jono ORR present. 19:25 Neuro: Orientation: is normal, Motor: is normal. Vital Signs: 18:12 BP 148 / 94; Pulse 97; Resp 16; Temp 99.7(TE); Pulse Ox 99% on R/A; Weight 62.14 kg; hb Height 4 ft. 9 in. (144.78 cm); Pain 7/10; 18:42 BP 122 / 74; Pulse 85; Resp 18; Pulse Ox 100% on R/A; mg2 19:27 BP 123 / 72; Pulse 86; Resp 18; Pulse Ox 99% on R/A; ea 20:42 BP 129 / 77; Pulse 71; Resp 18; Pulse Ox 100% on R/A; ea 18:12 Body Mass Index 29.65 (62.14 kg, 144.78 cm) hb MDM: 18:18 Patient medically screened. pm1 20:23 ED course: Patient refused IV contrast study due to breast feeding. Patient does not pm1 have a pump and does not want to feed her baby formula. Therefore will change CT study to a non-contrast exam. . 20:51 Data reviewed: vital signs. Data interpreted: Pulse oximetry: on room air is 100 %. pm1 Interpretation: normal. 20:51 Counseling: I had a detailed discussion with the patient and/or guardian regarding: the pm1 historical points, exam findings, and any diagnostic results supporting the discharge/admit diagnosis, lab results, radiology results, the need for outpatient follow up, to return to the emergency department if symptoms worsen or persist or if there are any questions or concerns that arise at home. 21:12 ED course: patient requesting medications for her allergies. Recommended patient follow pm1 up with her assessment consultant and chief radiology because treating her allergies is not worth the risk for her baby since she is unwilling to not breast feed her child temporarily . 09/11 18:30 Order name: Flu; Complete Time: 19:24 pm1 09/11 19:30 Order name: Basic Metabolic Panel; Complete Time: 20:04 pm1 09/11 19:30 Order name: CBC with Diff; Complete Time: 21:19 pm1 09/11 19:30 Order name: Hepatic Function; Complete Time: 20:04 pm1 09/11 19:30 Order name: Lipase; Complete Time: 20:04 pm1 09/11 20:44 Order name: Manual Differential; Complete Time: 21:19 EDMS 09/11 18:30 Order name: Chest Pa And Lat (2 Views) XRAY pm1 09/11 19:30 Order name: IV Saline Lock; Complete Time: 19:42 pm1 09/11 19:30 Order name: Labs collected and sent; Complete Time: 19:42 pm1 09/11 20:23 Order name: Abdomen ; Complete Time: 20:51 EDMS Administered Medications: No medications were administered Disposition: 09/11/19 20:59 Discharged to Home. Impression: Unspecified abdominal pain, Otalgia and effusion of ear - right ear, Allergy, unspecified. - Condition is Stable. - Discharge Instructions: Abdominal Pain, Adult, Allergies, Adult. - Medication Reconciliation Form, Thank You Letter, Antibiotic Education, Prescription Opioid Use form. - Follow up: Emergency Department; When: As needed; Reason: Worsening of condition. Follow up: Private Physician; When: 2 - 3 days; Reason: Recheck today's complaints, Continuance of care, Re-evaluation by your physician. - Problem is new. - Symptoms have improved. Addendum: 09/13/2019 22:46 Co-signature as Attending Physician, Jonny Mazariegos MD. g s Signatures: Dispatcher [employer] [facility] Chandler Izquierdo, GAS PIPE LAYER GAS PIPE LAYER pm1 Dianne Vela RN RN Sammi Sylvester RN RN ea Starr, Gregory, MD MD Corrections: (The following items were deleted from the chart) 09/11 20:23 20:06 Abdomen Pelvis W Con+CT.RAD.BRZ ordered. [facility] 21:12 20:59 09/11/2019 20:59 Discharged to Home. Impression: Unspecified abdominal pain; ea Otalgia and effusion of ear - right ear; Allergy, unspecified. Condition is Stable. Forms are Medication Reconciliation Form, Thank You Letter, Antibiotic Education, Prescription Opioid Use. Follow up: Emergency Department; When: As needed; Reason: Worsening of condition. Follow up: Private Physician; When: 2 - 3 days; Reason: Recheck today's complaints, Continuance of care, Re-evaluation by your physician. Problem is new. Symptoms have improved. pm1
[2019-09-11 21:29] VITALS: BP 158/87; TEMP 97.6; O2SAT 99
--- NOTE | 2019-09-11 22:45 | RAD REPORT ---
EXAM DESCRIPTION: RAD - Chest Pa And Lat (2 Views) - 09/11/2019 6:46 pm CLINICAL HISTORY: COUGH COMPARISON: January 2018 TECHNIQUE: PA and lateral views of the chest were obtained. FINDINGS: The lungs are clear of a focal process. Interstitial pattern is prominent but not substant ially different. Baseline pattern can mask early interstitial edema or infiltrate. Heart size is no rmal and central vasculature is within normal limits. No pleural effusion or pneumothorax seen. No acute bony finding noted. No aortic abnormality. IMPRESSION: No focal mass or consolidation. Baseline interstitial prominence could mask early edema or infiltrate.
== END 2019-09-11 21:12 | disposition home or self-care (01) ==
LOC: ER 18:02
DX: H92.02 Otalgia, left ear (principal); Z91.09 Other allergy status, other than to drugs and biological substances
CPT/HCPCS: 36415; 71046; 74176; 80048; 80076; 83690; 85025; 87804; 99284

== ENCOUNTER → 2023-12-25 | Emergency (ER) | payer OTHER, SELFPAY ==
[~2023-12-25] MED LIST changes: -CEFAZOLIN/SWI 2gm 2 GM/20 ML SYR IVP SCH; +DIPHENHYDRAMINE 50 MG/ML VIAL ONE; +KETOROLAC 30 MG/ML INJ ONE; +METOCLOPRAMIDE 10 MG/2mL INJ ONE; +NA CHLORIDE 0.9% 1,000 ML ONE; +dexAMETHasone 10 MG/ML VIAL ONE
[2023-12-25 23:13] LABS: Absolute Lymphocytes (CBC) 0.9 K/uL (0.7-4.9); Hematocrit 37.5 % (36.0-45.0); MPV 6.8 fL (7.6-11.3); Platelets 273 thou/uL (152-406); RBC Red Blood Cell Count 4.26 M/uL (3.86-4.86)
[2023-12-25 23:20] LABS: Potassium 3.7 mEq/L (3.5-5.1)
--- NOTE | 2023-12-26 00:05 | EDPHYS ---
Physician Documentation [facility] Name: Melinda Gallardo Age: 33 yrs Sex: Female : 1990 Arrival Date: 12/25/2023 Time: 22:18 Bed 10 Private MD: ED Physician Bar Whyte HPI: 12/26 00:11 This 33 yrs old Female presents to ER via Ambulatory with complaints of kb Nausea/Vomiting, Headache, Pain. 00:11 Pt is a 33 year old female who presents for headache, nausea and vomiting that started kb today. states she has these symptoms about twice per month. Denies fever, cough, congestion, abd pain. . CHEMICAL HANDLER: 12/25 22:31 LMP 12/18/2023, unknown as6 Historical: - Allergies: 22:29 No Known Allergies; as6 - PMHx: 22:29 None; as6 - PSHx: 22:29 section; as6 - Immunization history:: Adult Immunizations up to date. - Social history:: Smoking status: Patient denies any tobacco usage or history of. ROS: 12/26 00:11 Constitutional: Negative for fever, chills, and weight loss, kb Abdomen/GI: Positive for nausea and vomiting, Neuro: Positive for headache, All other systems are negative, Exam: 00:11 Constitutional: This is a well developed, well nourished patient who is awake, alert, kb and in no acute distress. Head/Face: Normocephalic, atraumatic. ENT: Moist Mucous membranes Cardiovascular: Regular rate Respiratory: Respirations even and unlabored. No increased work of breathing. Talking in full sentences Abdomen/GI: Soft, non-tender. No distention Skin: Warm, dry with normal turgor. Normal color. MS/ Extremity: Pulses equal, no cyanosis. Neurovascular intact. Full, normal range of motion. Neuro: Awake and alert, GCS 15, oriented to person, place, time, and situation. Moves all extremities. Normal gait. Vital Signs: 12/25 22:31 BP 119 / 81; Pulse 82; Resp 18 S; Temp 98.6(TE); Pulse Ox 100% on R/A; Weight 52.16 kg as6 (R); Height 4 ft. 8 in. (R); Pain 7/10; 23:37 BP 137 / 90; Pulse 112; Resp 16; Pulse Ox 100% on R/A; Pain 5/10; tl4 12/26 00:45 BP 125 / 72; Pulse 68; Resp 16; Pulse Ox 100% on R/A; Pain 0/10; kl 12/25 22:31 Body Mass Index 25.78 (52.16 kg, 142.24 cm) as6 12/25 22:31 Pain Scale: Adult as6 23:37 Pain Scale: Adult tl4 12/26 00:45 Pain Scale: Adult Giulia Coma Score: 00:12 Eye Response: spontaneous(4). Motor Response: obeys commands(6). Verbal Response: kb oriented(5). Total: 15. MDM: 12/25 22:27 Patient medically screened. kb 12/26 00:12 Differential diagnosis: migraine, tension headache. Data reviewed: vital signs, nurses kb notes. Counseling: I had a detailed discussion with the patient and/or guardian regarding the historical points, exam findings, and any diagnostic results supporting the discharge/admit diagnosis, lab results, the need for outpatient follow up, a neurologist, to return to the emergency department if symptoms worsen or persist or if there are any questions or concerns that arise at home. 12/25 22:31 Order name: CBC with Diff; Complete Time: 00:46 kb 12/25 22:31 Order name: BMP; Complete Time: 23:32 kb 12/25 23:16 Order name: Manual Differential; Complete Time: 00:46 EDMS 12/25 22:31 Order name: IV Start; Complete Time: 23:02 kb Administered Medications: 12/25 23:18 Drug: NS 0.9% IV 1000 ml IV at 1000 ml once Route: IV; Rate: 1000 ml; Site: right as6 antecubital; 23:18 Drug: metoCLOPramide IVP 10 mg IVP once; over 1 to 2 minutes Route: IVP; Site: right as6 antecubital; 23:18 Drug: diphenhydrAMINE IVP 12.5 mg IVP once Route: IVP; Site: right antecubital; as6 23:18 Drug: Ketorolac IVP 15 mg IVP once Route: IVP; Site: right antecubital; as6 23:18 Drug: Decadron - Dexamethasone IVP 10 mg IVP once Route: IVP; Site: right antecubital; as6 Disposition: 12/26 04:08 Co-signature as Attending Physician, Bar Whyte MD I agree with the assessment sp4 and plan of care. I reviewed the patient's care provided by the Advanced Practice Provider and agree with the diagnosis and treatment plan. Disposition Summary: 12/26/23 00:05 Discharge Ordered Notes: Location: Home kb Condition: Stable kb Diagnosis - Headache kb Followup: kb - With: Emergency Department - When: As needed - Reason: Worsening of condition Followup: kb - With: Private Physician - When: 2 - 3 days - Reason: Recheck today's complaints, Continuance of care, Re-evaluation by your physician Discharge Instructions: - Discharge Summary Sheet kb - Migraine Headache, [id number] kb - General Headache Without Cause, [id number] kb Forms: - Medication Reconciliation Form kb - Thank You Letter kb - Antibiotic Education kb - Prescription Opioid Use kb - Patient Portal Instructions kb - Leadership Thank You Letter kb Prescriptions: - ondansetron 4 mg Oral Tablet,disintegrating - take 1 tablet ORAL route every 6 hours As needed; 10 tablet; Refills: 0, kb Product Selection Permitted Signatures: Dispatcher [employer] EDMS Iva Cuevas, SCOTTY-C DIRECTOR CONSTRUCTION SERVICES-Moisés Hu RN RN as6 Bar Whyte MD MD sp4 Corrections: (The following items were deleted from the chart) 12/25 22:31 22:29 PSHx: None; as6 as6
--- NOTE | 2023-12-26 00:05 | ER ---
Nurse's Notes [facility] Name: Melinda Gallardo Age: 33 yrs Sex: Female : 1990 Arrival Date: 12/25/2023 Time: 22:18 Bed 10 Private MD: Diagnosis: Headache Presentation: 12/25 22:29 Chief complaint: Patient states: headache, neck stiffness, nausea, vomiting. as6 Coronavirus screen: At this time, the client does not indicate any symptoms associated with coronavirus-19. Ebola Screen: No symptoms or risks identified at this time. Risk Assessment: Do you want to hurt yourself or someone else? Patient reports no desire to harm self or others. Onset of symptoms was December 25, 2023. 22:29 Method Of Arrival: Ambulatory as6 22:29 Acuity: HERMAN 3 as6 23:03 Initial Sepsis Screen: Does the patient meet any 2 criteria? No. Patient's initial as6 sepsis screen is negative. Does the patient have a suspected source of infection? No. Patient's initial sepsis screen is negative. DISK GRINDER: 22:31 LMP 12/18/2023, unknown as6 Historical: - Allergies: 22:29 No Known Allergies; as6 - PMHx: 22:29 None; as6 - PSHx: 22:29 section; as6 - Immunization history:: Adult Immunizations up to date. - Social history:: Smoking status: Patient denies any tobacco usage or history of. Screenin:04 [facility] ED Fall Risk Assessment (Adult) Score/Fall Risk Level 0 - 2 = Low Risk. Abuse as6 screen: Denies threats or abuse. Denies injuries from another. Nutritional screening: No deficits noted. Tuberculosis screening: No symptoms or risk factors identified. Assessment: 23:02 General: Appears in no apparent distress. slender, Behavior is calm, cooperative. Pain: as6 Complains of pain in head Pain radiates to neck. Neuro: Reports headache. Cardiovascular: Capillary refill < 3 seconds Patient's skin is warm and dry. Respiratory: Respiratory effort is even, unlabored, Respiratory pattern is regular, symmetrical. GI: Reports nausea, vomiting. : No deficits noted. No signs and/or symptoms were reported regarding the genitourinary system. EENT: No deficits noted. No signs and/or symptoms were reported regarding the EENT system. Derm: Skin is intact, is healthy with good turgor. Musculoskeletal: Circulation, motion, and sensation intact. 12/26 00:46 Reassessment: Patient appears in no apparent distress at this time. Patient states kl feeling better. Patient states symptoms have improved. Vital Signs: 12/25 22:31 BP 119 / 81; Pulse 82; Resp 18 S; Temp 98.6(TE); Pulse Ox 100% on R/A; Weight 52.16 kg as6 (R); Height 4 ft. 8 in. (R); Pain 7/10; 23:37 BP 137 / 90; Pulse 112; Resp 16; Pulse Ox 100% on R/A; Pain 5/10; tl4 12/26 00:45 BP 125 / 72; Pulse 68; Resp 16; Pulse Ox 100% on R/A; Pain 0/10; kl 12/25 22:31 Body Mass Index 25.78 (52.16 kg, 142.24 cm) as6 12/25 22:31 Pain Scale: Adult as6 23:37 Pain Scale: Adult tl4 12/26 00:45 Pain Scale: Adult Giulia Coma Score: 00:12 Eye Response: spontaneous(4). Motor Response: obeys commands(6). Verbal Response: kb oriented(5). Total: 15. ED Course: 12/25 22:27 Patient arrived in ED. gm2 22:27 [facility] kb 22:27 Bar Whyte MD is Attending Physician. kb 22:28 Arm band placed on. as6 22:29 Triage completed. as6 22:54 Job Wen is Primary Nurse. tl4 23:02 BMP Sent. as6 23:02 CBC with Diff Sent. as6 23:02 Inserted saline lock: 20 gauge in right antecubital area, using aseptic technique. as6 Blood collected. 23:04 Bed in low position. Call light in reach. as6 12/26 00:10 Report given to DOMINGA Zhang. tl4 00:46 Resting quietly. kl 00:46 No provider procedures requiring assistance completed. IV discontinued, intact, kl bleeding controlled, No redness/swelling at site. Pressure dressing applied. Administered Medications: 12/25 23:18 Drug: NS 0.9% IV 1000 ml IV at 1000 ml once Route: IV; Rate: 1000 ml; Site: right as6 antecubital; 23:18 Drug: metoCLOPramide IVP 10 mg IVP once; over 1 to 2 minutes Route: IVP; Site: right as6 antecubital; 23:18 Drug: diphenhydrAMINE IVP 12.5 mg IVP once Route: IVP; Site: right antecubital; as6 23:18 Drug: Ketorolac IVP 15 mg IVP once Route: IVP; Site: right antecubital; as6 23:18 Drug: Decadron - Dexamethasone IVP 10 mg IVP once Route: IVP; Site: right antecubital; as6 Medication: 23:04 VIS not applicable for this client. as6 Outcome: 12/26 00:05 Discharge ordered by . christina 00:46 Discharged to home ambulatory, 00:46 Condition: improved 00:46 Discharge instructions given to patient, Instructed on discharge instructions, follow up and referral plans. medication usage, Demonstrated understanding of instructions, follow-up care, medications, Prescriptions given X 1, 00:47 Patient left the ED. Signatures: Iva Cuevas, FISHER DIVING-C FISHER DIVING-Pearl Fierro RN RN Moisés Porter RN RN as6 Ondina Correia gm2 Job Wen4 Corrections: (The following items were deleted from the chart) 12/25 22:31 22:29 PSHx: None; as6 as6
[2023-12-26 00:44] LABS: Blood Morphology Comment NOT SEEN (NOT SEEN); Platelet Estimate ADEQ
[2023-12-26 04:01] VITALS: TEMP 98.6; O2SAT 100
[2023-12-26 04:14] VITALS: BP 125/72
== END ==
LOC: ER 22:18
DX: R51.9 Headache, unspecified (principal); R11.2 Nausea with vomiting, unspecified
CPT/HCPCS: 36415; 80048; 85025; J1100; J1200; J2765; J7030